=== PATIENT | female | born 1970 | race Caucasian/White ===

== ENCOUNTER 2018-08-08 10:36 | Emergency (ER) | payer BC ==
[~2018-08-08] VITALS: Ht 156.8 cm; Wt 91.2 kg
[2018-08-08] MEDS ORDERED: ketorolac trometh. 30mg/ml inj. IM ONE (12:20)
[2018-08-08] MEDS ORDERED: benzonatate 100mg capsule PO ONE (12:20)
[2018-08-08] MEDS ORDERED: BENZ-16 PO (12:26)
[2018-08-08] MEDS ORDERED: HYDR-3965 PO (12:26)
[2018-08-08 14:01] VITALS: BP 135/77
== END 2018-08-08 14:03 | disposition home or self-care (01) ==
LOC: ER 10:36
DX: R07.89 Other chest pain (principal); R07.81 Pleurodynia; R05 Cough; R06.7 Sneezing; G89.29 Other chronic pain; F17.200 Nicotine dependence, unspecified, uncomplicated; Z88.6 Allergy status to analgesic agent; Z91.018 Allergy to other foods
CPT/HCPCS: 71045; 96372; 99283; J1885

== ENCOUNTER 2018-10-04 15:42 | Emergency (ER) | payer BC ==
[~2018-10-04] VITALS: Ht 156.8 cm; Wt 101.3 kg
[2018-10-04] MEDS ORDERED: methylPREDNISolone sod succ 125mg/2ml vial IV ONE (18:30)
[2018-10-04] MEDS ORDERED: ipratropium/albuterol 3ml nebule NEB ONE (18:30)
[2018-10-04] MEDS ORDERED: normal saline 1000ML IV soln IV ONE (18:30)
[2018-10-04 19:30] LABS: BASOPHILS # (AUTO) 0.1 X10'3 (0-0.2); BASOPHILS % (AUTO) 0.6 % (0-1); EOSINOPHILS # (AUTO) 0.3 X10'3 (0-0.9); EOSINOPHILS % (AUTO) 2.7 % (0-6); HEMATOCRIT 40.2 % (35.0-45.0); HEMOGLOBIN 13.3 g/dl (12.0-16.0); LYMPHOCYTES % (AUTO) 39.8 % (21-51); MEAN CORPUSCULAR HEMOGLOBIN 31.3 PG (27.0-31.0); MEAN CORPUSCULAR HGB CONC 33.1 % (33.0-36.5); MEAN CORPUSCULAR VOLUME 94.5 FL (78-98); MEAN PLATELET VOLUME 8.7 FL (7.4-10.4); MONOCYTES # (AUTO) 1.2 X10'3 (0-0.9); MONOCYTES % (AUTO) 9.8 % (2-12); NEUTROPHILS % (AUTO) 47.1 % (42-75); PLATELET COUNT 378 X10'3 (140-440); RED BLOOD COUNT 4.25 X10'6 (4.20-5.60); RED CELL DISTRIBUTION WIDTH 12.8 % (11.5-14.5); WHITE BLOOD COUNT 12.6 X10'3 (4.5-11.0)
[2018-10-04 19:40] LABS: ALANINE AMINOTRANSFERASE 46 U/L (12-78); ALBUMIN 3.7 G/DL (3.4-5.0); ALKALINE PHOSPHATASE 76 IU/L (46-116); ANION GAP 10 (8-16); ASPARTATE AMINO TRANSFERASE 22 U/L (10-37); BILIRUBIN,TOTAL 0.1 MG/DL (0.1-1.0); BLOOD UREA NITROGEN 12 MG/DL (7-18); BUN/CREATININE RATIO 13.3 (6.6-38.0); CALCIUM 8.6 MG/DL (8.5-10.1); CHLORIDE 106 MMOL/L (99-107); GLUCOSE 98 MG/DL (70-104); POTASSIUM 3.9 MMOL/L (3.5-5.1); SODIUM 141 MMOL/L (135-145); TOTAL CARBON DIOXIDE 24.8 MMOL/L (24-32); TOTAL PROTEIN 7.4 G/DL (6.4-8.2); eGFR 67 ML/MIN
[2018-10-04] MEDS ORDERED: azithromycin/NS 500mg/250ml 250 ML IV ONE (19:40)
[2018-10-04] MEDS ORDERED: CefTRIAXone 2gm/D5W 50ml 50 ML IV ONE (19:40)
[2018-10-04] MEDS ORDERED: oseltamivir phos 75mg capsule PO ONE (19:40)
[2018-10-04] MEDS ORDERED: albuterol 2.5 MG/3 ML nebule NEB ONE (20:00)
[2018-10-04] MEDS ORDERED: ondansetron/PF 4mg/2ml inj IV ONE (20:50)
[2018-10-04] MEDS ORDERED: GUAI-647 PO (21:02)
[2018-10-04] MEDS ORDERED: AZIT250T2 PO (21:02)
[2018-10-04] MEDS ORDERED: PRED20TA PO (21:02)
[2018-10-04] MEDS ORDERED: ALBU6.7H INH (21:02)
[2018-10-04 21:18] VITALS: BP 143/85
[2018-10-04 21:32] LABS: CLARITY,URINE CLEAR (Clear); COLOR,URINE YELLOW (Yellow); GLUCOSE, URINE NEGATIVE (Neg); KETONES,URINE NEGATIVE (Neg); PROTEIN,URINE NEGATIVE (Neg); UA COLLECTION TYPE CLN CATCH MIDSTREAM
[2018-10-04 21:33] LABS: LEUKOCYTE ESTERASE ,URINE NEGATIVE (Neg); NITRITES, URINE NEGATIVE (Neg); OCCULT BLOOD,URINE SMALL (Neg); UROBILINOGEN,URINE 0.2 E.U/dL (0.2-1.0)
[2018-10-04 21:34] LABS: BACTERIA,URINE NONE SEEN /HPF (Neg); RBC,URINE 0-2 /HPF (0-2); SQUAMOUS EPITHELIAL CELL,UR FEW /LPF (FEW); WBC,URINE NONE SEEN /HPF (0-4)
== END 2018-10-04 21:28 | disposition home or self-care (01) ==
LOC: ER 15:42
DX: J45.909 Unspecified asthma, uncomplicated (principal); J20.9 Acute bronchitis, unspecified; B96.89 Other specified bacterial agents as the cause of diseases classified elsewhere; G89.29 Other chronic pain; Z88.6 Allergy status to analgesic agent; Z91.018 Allergy to other foods; Z79.899 Other long term (current) drug therapy
CPT/HCPCS: 36415; 71045; 80053; 81001; 83605; 85025; 87040; 87502; 87503; 93005; 94640; 94760; 96365; 96368; 96375; 99284; J0456; J0696; J2405; J2930; J7030; 96361; 96367

== ENCOUNTER 2018-10-06 16:48 | Emergency (ER) | payer BC ==
[~2018-10-06] VITALS: Ht 157.5 cm; Wt 102.4 kg
[~2018-10-06 16:48] MED LIST: ALBU6.7H INH; AZIT250T2 PO; GUAI-647 PO; PRED20TA PO
[2018-10-06 17:31] LABS: BASOPHILS # (AUTO) 0.2 X10'3 (0-0.2); BASOPHILS % (AUTO) 1.4 % (0-1); EOSINOPHILS % (AUTO) 0.1 % (0-6); HEMATOCRIT 40.5 % (35.0-45.0); HEMOGLOBIN 13.4 g/dl (12.0-16.0); LYMPHOCYTES # (AUTO) 3.4 X10'3 (1.1-4.8); MEAN CORPUSCULAR HEMOGLOBIN 31.1 PG (27.0-31.0); MEAN CORPUSCULAR HGB CONC 33.1 % (33.0-36.5); MEAN CORPUSCULAR VOLUME 93.9 FL (78-98); MEAN PLATELET VOLUME 8.8 FL (7.4-10.4); MONOCYTES # (AUTO) 0.7 X10'3 (0-0.9); MONOCYTES % (AUTO) 4.8 % (2-12); NEUTROPHILS # (AUTO) 9.9 X10'3 (1.8-7.7); NEUTROPHILS % (AUTO) 69.7 % (42-75); PLATELET COUNT 426 X10'3 (140-440); RED BLOOD COUNT 4.32 X10'6 (4.20-5.60); RED CELL DISTRIBUTION WIDTH 12.7 % (11.5-14.5); WHITE BLOOD COUNT 14.2 X10'3 (4.5-11.0)
[2018-10-06] MEDS: HYDROcodone/acetaminophen 5mg/325mg tablet PO ONE (17:33)
[2018-10-06] MEDS ORDERED: iohexol 350MG/ML 100ml bottle IV ONE (17:39)
[2018-10-06 17:47] LABS: ALANINE AMINOTRANSFERASE 56 U/L (12-78); ALKALINE PHOSPHATASE 88 IU/L (46-116); ANION GAP 13 (8-16); ASPARTATE AMINO TRANSFERASE 24 U/L (10-37); BILIRUBIN,TOTAL 0.2 MG/DL (0.1-1.0); BLOOD UREA NITROGEN 16 MG/DL (7-18); BUN/CREATININE RATIO 17.2 (6.6-38.0); CALCIUM 9.2 MG/DL (8.5-10.1); CHLORIDE 103 MMOL/L (99-107); CREATININE 0.93 MG/DL (0.40-0.90); GLUCOSE 129 MG/DL (70-104); POTASSIUM 4.1 MMOL/L (3.5-5.1); SODIUM 141 MMOL/L (135-145); TOTAL CARBON DIOXIDE 25.2 MMOL/L (24-32); TOTAL PROTEIN 8.1 G/DL (6.4-8.2); eGFR 64 ML/MIN
[2018-10-06 17:54] LABS: INR 0.9 INR
--- NOTE | 2018-10-06 18:42 | NUR ---
Patient comfortable and sitting upright in bed with family at bedside. Patient is requesting juice which was provided. No other requests at this time.
--- NOTE | 2018-10-06 19:11 | NUR ---
Patient resting comfortably in bed and reports improvement of pain. Patient updated on POC.
[2018-10-06] MEDS ORDERED: HYDR-3965 PO (19:36)
[2018-10-06 19:54] VITALS: BP 157/108
== END 2018-10-06 19:56 | disposition home or self-care (01) ==
LOC: ER 16:48
DX: J40 Bronchitis, not specified as acute or chronic (principal); G89.29 Other chronic pain; F17.210 Nicotine dependence, cigarettes, uncomplicated; Z88.8 Allergy status to other drugs, medicaments and biological substances; Z79.899 Other long term (current) drug therapy; Z88.5 Allergy status to narcotic agent; Z91.018 Allergy to other foods
CPT/HCPCS: 36415; 71045; 71275; 80053; 83605; 83880; 84145; 84484; 85025; 85610; 87040; 93005; 99284; Q9967

== ENCOUNTER 2019-03-15 15:35 | Emergency (ER) | payer BC ==
[~2019-03-15] VITALS: Ht 157.5 cm; Wt 101.8 kg
[~2019-03-15 15:35] MED LIST changes: -AZIT250T2 PO; -GUAI-647 PO; -PRED20TA PO
[2019-03-15 16:25] VITALS: BP 173/107
[2019-03-15] MEDS ORDERED: AZIT-63 PO (18:17)
[2019-03-15] MEDS ORDERED: CODE10LI PO (18:17)
[2019-03-15] MEDS ORDERED: insulin regular, human 10 units/0.1 ml syringe SQ ONE (18:20)
== END 2019-03-15 18:54 | disposition home or self-care (01) ==
LOC: ER 15:35
DX: J40 Bronchitis, not specified as acute or chronic (principal); R07.81 Pleurodynia; G89.29 Other chronic pain; Z88.6 Allergy status to analgesic agent; Z91.018 Allergy to other foods; Z79.899 Other long term (current) drug therapy
CPT/HCPCS: 71046; 99283